=== PATIENT | female | born 1985 ===

== ENCOUNTER 2018-08-19 08:37 | Inpatient (IN) | payer OTHER ==
[2018-08-18 15:09] VITALS: BMI 20.7
[2018-08-19] MEDS ORDERED: Lactated Ringer's 1,000 ML IV ONE ×2 (09:42→11:04)
[2018-08-19 10:08] LABS: BASO % 0.3 % (0.0-2.0); HEMOGLOBIN 13.4 g/dL (12.0-16.0); LYMPH # 1.2 K/uL (1.0-4.3); LYMPH % 21.3 % (20.0-40.0); MEAN CELL VOLUME 89.7 fl (81.0-99.0); MEAN CORPUSCULAR HEMOGLOBIN 29.9 pg (27.0-31.0); MEAN CORPUSCULAR HGB CONC 33.4 g/dL (33.0-37.0); MEAN PLATELET VOLUME 8.1 fl (7.2-11.7); MONO # 0.4 K/uL (0.0-0.8); MONO % 7.6 % (0.0-10.0); NEUT # 3.9 K/uL (1.8-7.0); NEUT % 70.8 % (50.0-75.0); NRBC % 0.1 % (0.0-0.0); RBC 4.49 Mil/uL (3.80-5.20); RED CELL DISTRIBUTION WIDTH 13.5 % (11.5-14.5); WHITE BLOOD COUNT 5.5 K/uL (4.8-10.8)
[2018-08-19] MEDS ORDERED: Silver Nitrate Topical - Stick ONE (10:32)
[2018-08-19] MEDS ORDERED: Bupivacaine 0.5% Inj(30mL) ONE (10:33)
[2018-08-19] MEDS ORDERED: Propofol 10 mg/ml Inj (20 ML) ONE (10:58)
[2018-08-19] MEDS ORDERED: Rocuronium 10 mg/ml (5 ml) ONE ×3 (10:58→15:43)
[2018-08-19] MEDS ORDERED: Succinylcholine Chloride 20 mg/ml Syr (5 ml) IV ONE (10:59)
[2018-08-19] MEDS ORDERED: Lidocaine 4% (Laryng-O-Jet) Kit MM ONE (10:59)
[2018-08-19] MEDS ORDERED: Phenylephrine 10 mg/ml Inj ONE (11:01)
[2018-08-19] MEDS ORDERED: Midazolam 2 MG/2 ML VIAL ONE (11:32)
[2018-08-19] MEDS ORDERED: ePHEDrine 50 mg/ml Inj ONE (11:32)
[2018-08-19] MEDS ORDERED: Bupivacaine 0.5% 50 ML IJ ONE ×2 (12:08)
[2018-08-19] MEDS ORDERED: Desflurane Inhalation Anesthetic Liq (240 ml) ONE (13:31)
[2018-08-19] MEDS ORDERED: Silver Nitrate Topical - Stick TOP ONE (15:30)
[2018-08-19] MEDS ORDERED: Neostigmine 1:1000 (1 mg/ml) Inj ONE (16:26)
[2018-08-19] MEDS ORDERED: Liquid Adhesive TOP ONE ×3 (16:40→16:45)
[2018-08-19] MEDS ORDERED: Sodium Chloride 0.9% 1,000 ML IV SCH (17:00)
[2018-08-19] MEDS ORDERED: Lactated Ringer's 1,000 ML IV SCH (17:15)
[2018-08-19] MEDS: HYDROmorphone 0.5 mg/0.5 ml ISec IVP PRN ×3 (17:30→18:05)
--- NOTE | 2018-08-19 18:29 | RAD ---
HISTORY: pt in pacu, s/p chest tube COMPARISON: None available. TECHNIQUE: Chest, one view. FINDINGS: Left-sided chest tube. LUNGS: No focal consolidation. Please note that chest x-ray has limited sensitivity for the detection of pulmonary masses. PLEURA: No significant pleural effusion identified. No definite pneumothorax . CARDIOVASCULAR: Heart size appears within normal limits. OSSEOUS STRUCTURES: No acute osseous abnormality identified. VISUALIZED UPPER ABDOMEN: Subcutaneous emphysema, left lateral chest wall. OTHER FINDINGS: None. IMPRESSION: Subcutaneous emphysema, left lateral chest wall. Left-sided chest tube.
[2018-08-19] MEDS ORDERED: ceFAZolin 1 GM in Sodium Chloride 0.9% 100 ML IVPB SCH (20:00)
[2018-08-20] MEDS: ceFAZolin 1 GM in Sodium Chloride 0.9% 100 ML IVPB SCH ×2 (00:26→09:09)
[2018-08-20] MEDS: Sodium Chloride 0.9% 1,000 ML IV SCH ×2 (00:28→20:15)
[2018-08-20 05:33] LABS: MEAN CORPUSCULAR HEMOGLOBIN 29.8 pg (27.0-31.0); MEAN CORPUSCULAR HGB CONC 32.7 g/dL (33.0-37.0); RBC 3.34 Mil/uL (3.80-5.20); RED CELL DISTRIBUTION WIDTH 13.5 % (11.5-14.5); WHITE BLOOD COUNT 12.1 K/uL (4.8-10.8)
[2018-08-20 05:44] LABS: BLOOD UREA NITROGEN 15 mg/dl (7-17); CALCIUM 7.5 mg/dL (8.4-10.2); GFR NON-AFRICAN AMERICAN > 60
--- NOTE | 2018-08-20 08:16 | CP.PCM.PN ---
Subjective - Date & Time of Evaluation Date of Evaluation: 08/20/18 Time of Evaluation: 05:35 - Subjective Subjective: Surgery Progress note- Dr. aWrd & Dr. Coelho Patient seen and examined at bedside this AM. Had some pain around the chest tube site and around the lower part of the chest overnight. received 0.5 of dilaudid and Toradol over the course of the night. Saturating 100% on Ra. Left Chest tube to suction, 160cc serosang fluid, no air leak detected. CXR this AM showed no pneumothorax. Remains NPO, MAPs stable between 64-76. Urine output 1110cc since surgery. received 500cc LR bolus overnight. UOP increased to 40- 50cc/hr. A.febrile overnight. remains on Ancef for SCIP protocol, continue DVT ppx, lovenox Objective - Vital Signs/Intake and Output Vital Signs (last 24 hours): Temp Pulse Resp BP Pulse Ox 98.7 F 69 14 97/56 L 100 08/20/18 04:00 08/20/18 07:00 08/20/18 07:00 08/20/18 07:00 08/20/18 07:00 Intake and Output: 08/20/18 08/20/18 06:59 18:59 Intake Total 940 Output Total 960 Balance -20 - Medications Medications: Current Medications Docusate Sodium (Colace) 100 mg PO BID PRN PRN Reason: Constipation Enoxaparin Sodium (Lovenox) 40 mg SC DAILY WILLIAM; Protocol Hydromorphone HCl (Dilaudid) 0.5 mg IVP Q4 PRN PRN Reason: Pain, severe (8-10) Last Admin: 08/20/18 06:01 Dose: 0.5 mg Lactated Ringer's (Lactated Ringer's) 1,000 mls @ 100 mls/hr IV .Q10H [facility] Last Admin: 08/19/18 17:15 Dose: 300 mls Cefazolin Sodium 1 gm/ Sodium (Chloride) 100 mls @ 100 mls/hr IVPB Q8H [facility]IAM; Protocol Stop: 08/20/18 08:59 Last Admin: 08/20/18 00:26 Dose: 100 mls/hr Sodium Chloride (Sodium Chloride 0.9%) 1,000 mls @ 100 mls/hr IV .Q10H [facility] Last Admin: 08/20/18 00:28 Dose: 100 mls/hr Ketorolac Tromethamine (Toradol) 30 mg IVP ONCE PRN PRN Reason: Pain, moderate (4-7) Ondansetron HCl (Zofran Inj) 4 mg IVP Q4 PRN PRN Reason: Nausea/Vomiting Last Admin: 08/19/18 17:30 Dose: 4 mg - Labs Labs: 08/20/18 04:40 08/20/18 04:40 - Constitutional Appears: Non-toxic, No Acute Distress - Head Exam Head Exam: ATRAUMATIC - Eye Exam Eye Exam: EOMI - ENT Exam ENT Exam: Mucous Membranes Moist - Respiratory Exam Respiratory Exam: Clear to Ausculation Bilateral, NORMAL BREATHING PATTERN. absent: Accessory Muscle Use, Rales, Rhonchi, Wheezes, Respiratory Distress Additional comments: Left chest tube in place, 160cc serosang fluid, no air leak detected. - Cardiovascular Exam Cardiovascular Exam: REGULAR RHYTHM, +S1, +S2. absent: Bradycardia, Tachycardia - GI/Abdominal Exam GI & Abdominal Exam: Soft, Tenderness (mildly tender around incisions. ABD soft) - Exam Additional comments: Khan in place, making adequate urine - Neurological Exam Neurological Exam: Alert, Awake, Oriented x3 - Skin Skin Exam: Intact, Normal Color Assessment and Plan - Assessment and Plan (Free Text) Assessment: 32F s/p robotic endometriosis surgery, Diaphragm resection, L. Chest tube thorocostomy placement POD#1 Plan: - Pain control PRN; change to RTC Toradol - monitor drain output if decreases plan for chest x-ray and possible Chest tube to water seal - monitor CT output - Maintain MAP > 65 - Advance diet to clears - plan to D/C khan this AM - monitor H/H; repeat labs tomorrow AM - Abx per SCIP - DVT ppx - further recs per Dr. Ward and Dr. Coelho [facility]ings [facility] PGY2
[2018-08-20] MEDS: Enoxaparin 40 mg Syringe SC SCH (10:00)
--- NOTE | 2018-08-20 12:03 | RAD ---
Date of service: 08/20/2018 PROCEDURE: CHEST RADIOGRAPH, 1 VIEW HISTORY: f/u chest tube COMPARISON: 08/19/2018 FINDINGS: LUNGS: Clear. PLEURA: No pneumothorax or pleural fluid seen. CARDIOVASCULAR: No aortic atherosclerotic calcification present. Normal. OSSEOUS STRUCTURES: No significant abnormalities. VISUALIZED UPPER ABDOMEN: Normal. OTHER FINDINGS: None. IMPRESSION: No active disease.
[2018-08-20] MEDS ORDERED: Lactated Ringer's 1,000 ML IV SCH (13:30)
[2018-08-20] MEDS ORDERED: Sodium Chloride 0.9% 1,000 ML IV SCH (14:15)
--- NOTE | 2018-08-20 14:15 | RAD ---
Date of service: 08/20/2018 PROCEDURE: CHEST RADIOGRAPH, 1 VIEW HISTORY: Chest Tube Placement COMPARISON: 08/20/2018 at 12:22 a.m. FINDINGS: LUNGS: There opacity at lateral left lung base which may reflect developing pneumonia. Follow-up is advised. No other abnormal opacity elsewhere. PLEURA: Possible small left pleural effusion. No right pleural effusion. Left chest tube noted. No pneumothorax. CARDIOVASCULAR: No aortic atherosclerotic calcification present. Normal. OSSEOUS STRUCTURES: No significant abnormalities. VISUALIZED UPPER ABDOMEN: Normal. OTHER FINDINGS: None. IMPRESSION: Left chest tube. Possible very small left pleural effusion. No pneumothorax. Opacity at lateral left lung base common nonspecific. Follow-up advised.
--- NOTE | 2018-08-20 15:10 | RAD ---
Date of service: 08/20/2018 PROCEDURE: CHEST RADIOGRAPH, 1 VIEW HISTORY: re-evaluate pneumothorax on water seal COMPARISON: 08/20/2018 FINDINGS: LUNGS: Clear. PLEURA: No pneumothorax or pleural fluid seen. CARDIOVASCULAR: No aortic atherosclerotic calcification present. Normal. OSSEOUS STRUCTURES: No significant abnormalities. VISUALIZED UPPER ABDOMEN: Normal. OTHER FINDINGS: None. IMPRESSION: No active disease.
--- NOTE | 2018-08-20 19:19 | RAD ---
Date of service: 08/20/2018 PROCEDURE: CHEST RADIOGRAPH, 1 VIEW HISTORY: re-evaluate s/p D/C L chest tube COMPARISON: 08/20/2018 at 2:22 p.m. FINDINGS: LUNGS: Clear. PLEURA: No pneumothorax or pleural fluid seen. CARDIOVASCULAR: No aortic atherosclerotic calcification present. Normal. OSSEOUS STRUCTURES: No significant abnormalities. VISUALIZED UPPER ABDOMEN: Normal. OTHER FINDINGS: None. IMPRESSION: No active disease.
[2018-08-20] MEDS ORDERED: Sodium Chloride 0.9% 500 ML IV ONE (22:05)
[2018-08-21 05:31] LABS: HEMOGLOBIN 8.2 g/dL (12.0-16.0); MEAN CELL VOLUME 90.8 fl (81.0-99.0); MEAN CORPUSCULAR HEMOGLOBIN 30.7 pg (27.0-31.0); MEAN CORPUSCULAR HGB CONC 33.8 g/dL (33.0-37.0); RBC 2.66 Mil/uL (3.80-5.20); RED CELL DISTRIBUTION WIDTH 13.5 % (11.5-14.5); WHITE BLOOD COUNT 6.3 K/uL (4.8-10.8)
[2018-08-21 05:51] LABS: BLOOD UREA NITROGEN 8 mg/dl (7-17); CALCIUM 7.6 mg/dL (8.4-10.2); GFR NON-AFRICAN AMERICAN > 60
--- NOTE | 2018-08-21 07:54 | CP.PCM.PN ---
Subjective - Date & Time of Evaluation Date of Evaluation: 08/21/18 Time of Evaluation: 06:30 - Subjective Subjective: Surgery Progress note- Dr. Ward Patient seen and examined at bedside. Chest tube was removed yesterday. No pneumothorax noted. Patient using Incentive spirometer pulling approx 800. Pain adequately controlled at this time w/ Toradol. + flatus, No BM. Gallagher removed yesterday AM, voiding freely. drop in Hgb,, patient states currently menstruating. +OOB and ambulating. DVT ppx. Denies fevers, chills, chest pain, shortness of breath. Objective - Vital Signs/Intake and Output Vital Signs (last 24 hours): Temp Pulse Resp BP Pulse Ox 98.8 F 85 23 99/69 L 99 08/21/18 04:00 08/21/18 06:00 08/21/18 06:00 08/21/18 06:00 08/21/18 06:00 Intake and Output: 08/21/18 08/21/18 06:59 18:59 Intake Total 700 Balance 700 - Medications Medications: Current Medications Docusate Sodium (Colace) 100 mg PO BID PRN PRN Reason: Constipation Enoxaparin Sodium (Lovenox) 40 mg SC DAILY WILLIAM; Protocol Last Admin: 08/20/18 10:00 Dose: 40 mg Lactated Ringer's (Lactated Ringer's) 1,000 mls @ 100 mls/hr IV .Q10H [facility] Last Admin: 08/19/18 17:15 Dose: 300 mls Sodium Chloride (Sodium Chloride 0.9%) 1,000 mls @ 100 mls/hr IV .Q10H [facility] Last Admin: 08/20/18 20:15 Dose: 100 mls/hr Ketorolac Tromethamine (Toradol) 30 mg IVP Q6H [facility] Last Admin: 08/21/18 07:02 Dose: Not Given Ondansetron HCl (Zofran Inj) 4 mg IVP Q4 PRN PRN Reason: Nausea/Vomiting Last Admin: 08/19/18 17:30 Dose: 4 mg - Labs Labs: 08/21/18 04:45 08/21/18 04:45 - Constitutional Appears: Non-toxic, No Acute Distress - Head Exam Head Exam: ATRAUMATIC - Eye Exam Eye Exam: EOMI. absent: Scleral icterus - ENT Exam ENT Exam: Mucous Membranes Moist - Respiratory Exam Respiratory Exam: NORMAL BREATHING PATTERN. absent: Accessory Muscle Use, Respiratory Distress - Cardiovascular Exam Cardiovascular Exam: Tachycardia, REGULAR RHYTHM. absent: Bradycardia - GI/Abdominal Exam GI & Abdominal Exam: Soft. absent: Distended, Firm, Guarding, Rigid, Tenderness - Neurological Exam Neurological Exam: Alert, Awake, Oriented x3 - Psychiatric Exam Psychiatric exam: Normal Affect - Skin Skin Exam: Intact, Warm Assessment and Plan - Assessment and Plan (Free Text) Assessment: 32F s/p robotic endometriosis, diaphragm resection s/p Chest tube thoracostomy POD#2; now chest tube removed Plan: - Pain control PRN - encourage Incentive [place] use - OOB and ambulating - advance diet as tolerated - anti-emetic PRN - c/w DVT ppx - keep IVF - continue to monitor vitals - cleared to transfer out of ICU - further recs per Dr. Ward Surgical attending PGY2
[2018-08-21] MEDS: Enoxaparin 40 mg Syringe SC SCH (09:18)
--- NOTE | 2018-08-21 10:58 | RAD ---
Date of service: 08/20/2018 PROCEDURE: CHEST RADIOGRAPH, 1 VIEW HISTORY: re-eval for left pneumothorax s/p DC chest tube COMPARISON: 08/20/2018 at 4:36 p.m. FINDINGS: LUNGS: No infiltrate. PLEURA: No pleural effusion. Trace air seen beneath the heart which may reflect small pneumothorax or pneumomediastinum. In retrospect this may have been present on prior examination of the same date. No generalized pneumomediastinum. No pneumothorax appreciated elsewhere. CARDIOVASCULAR: No aortic atherosclerotic calcification present. Normal. OSSEOUS STRUCTURES: No significant abnormalities. VISUALIZED UPPER ABDOMEN: Normal. OTHER FINDINGS: None. IMPRESSION: Possible trace pneumomediastinum or pneumo thorax with sub cardiac trace curvilinear air. Follow-up advised.
--- NOTE | 2018-08-21 11:32 | PCM.OP ---
Operative Report - Operative Report Date of Surgery/Procedure: 08/19/18 Time of Surgery/Procedure: 10:00 Surgeon: Dr. Emile Ward Advanced Seal Delivery System: Dr. Dorian Coelho Anesthesia/Sedation: general/Dr. Yanez Pre-Operative Diagnosis: Abdominal pain, upper abdominal pain, chest pain and pelvic pain from endometriosis Post-Operative Diagnosis: same Indication for Surgery: As above Operative Findings: Severe involvement of endometriosis including pelvis rectum and sigmoid colon and left diaphragm Procedure/Operation Description: Brief history: This is a 32-year-old woman who had been previously operated on for abdominal pain from endometriosis. On a previous surgery it was noted that she had extensive pain. During the laparoscopic exploration Dr. [place] he noted extensive involvement of endometriosis to the intestines and the left diaphragm. A drop of consultation was obtained. Description of the procedure: 1-diaphragm resection and complex repair 2-excision pericardial endometriosis x2 3-excision of multiple perirectal endometriosis x3 4-colrorrhaphy x2 5-left chest tube thoracostomy Description of the procedure: The patient had already been brought to the operative DrReg Coelho (separate dictation). The initial portion of the operation include the pelvic procedure. As noted above there were multiple lesions in the rectum and sigmoid colon. The first lesions in the sigmoid colon was excised using electrocautery circumferentially. The first lesion was on the more proximal portion of the sigmoid colon it was lifted using blunt and sharp dissection. Once this was completed the specimen was appropriately marked and sent to pathology. This portion of the colon was then oversewn with multiple interrupted 3-0 Vicryl sutures. Attention was then turned to the more distal portion of the sigmoid where a larger deeper lesion was excised in a similar man ner. This was also probably marked pathology separately. Another lesion was excised in a similar manner. The sigmoid colon was then closed using interrupted 3-0 Vicryl suture. 2 other perirectal lesions were exposed, excised in a similar manner. All the specimens were sent separately to pathology. The operation was then turned over to Dr. Coelho (separate dictation). The robot was removed and oriented for the left upper quadrant lesion involving the diaphragm. Once the robot was set up the area in question was examined and there were approximately 2 areas of pericardial endometriosis and involving the left the pericardium were excised. Using blunt and sharp dissection with the aid of electrocautery. The lesion on the pericardial side was excised, appropriate marked and sent to pathology separately. The other 3 lesions in the left diaphragm were excised in a similar fashion, however, the thorax was violated and this was noted during the procedure. These lesions were excised separately and sent to pathology after being appropriately marked. The left chest tube thoracostomy was placed in between the ninth and 10th ribs at approximately mid axillary line. Using a 10 blade the skin was incised and the 28 Yi tube was placed into the thorax. This is secured to the skin using multiple 2-0 silk sutures. The tube was connected to a Pneumovac and we continued with the robotic procedure. With the Pneumovax in place and using 30V lock the diaphragm was repaired using multiple 30V lock sutures in a continuous fashion. It must be noted at this time that during the closure of the diaphragm there was no leak at all evident with the Pneumovac. Hemostasis was deemed adequate and all counts were correct. The operation was then turned over to Dr. Coelho (separate dictation). Estimated Blood Loss: 200 cc Drains: 28F thoracostomy tube Complications: none Discharge & Condition: stable
--- NOTE | 2018-08-21 13:04 | RAD ---
Date of service: 08/21/2018 PROCEDURE: CHEST RADIOGRAPH, 1 VIEW HISTORY: re-evaluate for pneumothorax COMPARISON: 08/20/2018 FINDINGS: LUNGS: Clear. PLEURA: No pneumothorax or pleural fluid seen. CARDIOVASCULAR: No aortic atherosclerotic calcification present. Normal. OSSEOUS STRUCTURES: No significant abnormalities. VISUALIZED UPPER ABDOMEN: Normal. OTHER FINDINGS: None. IMPRESSION: No active disease.
[2018-08-21] MEDS: Sodium Chloride 0.9% 1,000 ML IV SCH (17:00)
[2018-08-22 04:55] VITALS: RESP 20
[2018-08-22 06:33] LABS: HEMOGLOBIN 8.3 g/dL (12.0-16.0); MEAN CELL VOLUME 90.8 fl (81.0-99.0); MEAN CORPUSCULAR HEMOGLOBIN 29.7 pg (27.0-31.0); MEAN CORPUSCULAR HGB CONC 32.7 g/dL (33.0-37.0); RBC 2.78 Mil/uL (3.80-5.20); RED CELL DISTRIBUTION WIDTH 13.6 % (11.5-14.5); WHITE BLOOD COUNT 4.7 K/uL (4.8-10.8)
[2018-08-22 08:57] VITALS: BP 109/74; O2SAT 100
--- NOTE | 2018-08-22 09:05 | CP.PCM.DIS ---
Provider - Provider Date of Admission: 08/19/18 16:53 Attending physician: Dorian Coelho Time Spent in preparation of Discharge (in minutes): 35 Diagnosis - Discharge Diagnosis (1) S/P endometrial ablation Status: Acute Priority: High (2) Endometriosis determined by laparoscopy Status: Chronic Priority: High (3) S/P chest tube placement Status: Acute Priority: High (4) Pain, postoperative, acute Status: Acute Priority: Medium Hospital Course - Lab Results Lab Results: Micro Results 08/19/18 23:15 Naris MRSA Culture (Admit) - Final MRSA NOT DETECTED Most Recent Lab Values WBC 4.7 K/uL (4.8-10.8) L 08/22/18 05:15 RBC 2.78 Mil/uL (3.80-5.20) L 08/22/18 05:15 Hgb 8.3 g/dL (12.0-16.0) L 08/22/18 05:15 Hct 25.2 % (34.0-47.0) L 08/22/18 05:15 MCV 90.8 fl (81.0-99.0) 08/22/18 05:15 MCH 29.7 pg (27.0-31.0) 08/22/18 05:15 MCHC 32.7 g/dL (33.0-37.0) L 08/22/18 05:15 RDW 13.6 % (11.5-14.5) 08/22/18 05:15 Plt Count 171 K/uL (130-400) 08/22/18 05:15 MPV 8.1 fl (7.2-11.7) 08/19/18 09:50 Neut % (Auto) 70.8 % (50.0-75.0) 08/19/18 09:50 Lymph % (Auto) 21.3 % (20.0-40.0) 08/19/18 09:50 Cherry % (Auto) 7.6 % (0.0-10.0) 08/19/18 09:50 Eos % (Auto) 0.0 % (0.0-4.0) 08/19/18 09:50 Baso % (Auto) 0.3 % (0.0-2.0) 08/19/18 09:50 Neut # (Auto) 3.9 K/uL (1.8-7.0) 08/19/18 09:50 Lymph # (Auto) 1.2 K/uL (1.0-4.3) 08/19/18 09:50 Cherry # (Auto) 0.4 K/uL (0.0-0.8) 08/19/18 09:50 Eos # (Auto) 0.0 K/uL (0.0-0.7) 08/19/18 09:50 Baso # (Auto) 0.0 K/uL (0.0-0.2) 08/19/18 09:50 Sodium 138 mmol/l (132-148) 08/21/18 04:45 Potassium 3.7 MMOL/L (3.6-5.0) 08/21/18 04:45 Chloride 105 mmol/L (98-107) 08/21/18 04:45 Carbon Dioxide 26 mmol/L (22-30) 08/21/18 04:45 Anion Gap 11 (10-20) 08/21/18 04:45 BUN 8 mg/dl (7-17) 08/21/18 04:45 Creatinine 0.5 mg/dl (0.7-1.2) L 08/21/18 04:45 Est GFR ( Amer) > 60 08/21/18 04:45 Est GFR (Non-Af Amer) > 60 08/21/18 04:45 Random Glucose 85 mg/dL (65-105) 08/21/18 04:45 Calcium 7.6 mg/dL (8.4-10.2) L 08/21/18 04:45 Phosphorus 4.3 mg/dl (2.5-4.5) 08/20/18 04:40 Magnesium 2.0 MG/DL (1.6-2.3) 08/20/18 04:40 Blood Type O POSITIVE 08/19/18 09:50 Blood Type Confirm O POSITIVE 08/19/18 11:03 Antibody Screen Negative 08/19/18 09:50 BBK History Checked No verified bt 08/19/18 09:50 - Hospital Course Hospital Course: 32F with PMH of abdominal pain, upper abdominal pain, chest pain and pelvic pain from endometriosis presented through sameday surgery for robotic assisted laparoscopic ablation of endometriosis by Dr. Coelho and Dr. Ward. During the operation, endometriosis was found to be extensive and lesions were found on the left diaphragm. Resection of the lesions was performed and Chest tube was placed on the left pleural cavity. Patient tolerated the procedure well and on post operative day 1 chest tube was removed with no complications. By post-operative day 3 patient was tolerating regular diet and passing flatus, ambulating, with no respiratory distress and pain controlled on PO pain medication. Patient was discharged to home with PO pain medicine with instructions to follow up with Dr. Coelho in his office. For full hospital course, refer to chart Discharge Exam - Head Exam Head Exam: ATRAUMATIC - Eye Exam Eye Exam: Normal appearance. absent: Conjunctival injection, Scleral icterus - ENT Exam ENT Exam: Mucous Membranes Moist, Normal Oropharynx - Respiratory Exam Respiratory Exam: NORMAL BREATHING PATTERN, UNREMARKABLE. absent: Accessory Muscle Use, Rales, Rhonchi, Wheezes Additional comments: left chest tube site with dressing intact, moderate serosanguinous saturation unchanged from prior exams - Cardiovascular Exam Cardiovascular Exam: RRR - GI/Abdominal Exam GI & Abdominal Exam: Soft, Tenderness (BL lower quadrants mild tenderness to palpation). absent: Distended Additional comments: surgical dressings inplace with no saturation, no surrounding erythema or swelling - Extremities Exam Extremities exam: normal inspection, pedal pulses present - Neurological Exam Neurological exam: Alert, Oriented x3 - Psychiatric Exam Psychiatric exam: Normal Affect, Normal Mood - Skin Skin Exam: Dry, Normal Color, Warm Discharge Plan - Follow Up Plan Condition: GOOD Disposition: HOME/ ROUTINE Additional Instructions: Call Dr. Coelho's office to schedule a follow up appointment in 1-2 weeks No heavy lifting >15 pounds for 4 weeks or until instructed by Dr. Coelho You may take off the bandaids tomorrow. Do not peel the skin glue off--it will fall of on its own Change chest dressing as needed for any drainage Call Dr. Coelho's office or come to ER for fever >100.4 not resolved with tylenol, severe abdominal or chest pain, nausea, vomiting, shortness of breath, erythema around the surgical sites, or any other concerning symptoms. Referrals: Dorian Coelho [Medical Doctor] - Emile Ward MD [Medical Doctor] -
[2018-08-22] MEDS: Enoxaparin 40 mg Syringe SC SCH (09:58)
[2018-08-22 12:48] VITALS: PULSE 93; TEMP 99.3
--- NOTE | 2018-08-25 15:55 | OP ---
PROCEDURE DATE: 08/19/2018 SURGEON: Dorian Coelho MD HISTORIOGRAPHY PROFESSOR: Emile Ward MD ANESTHESIOLOGIST: Allie Yanez MD, MD, Joseph TYPE OF ANESTHESIA: General endotracheal. PREOPERATIVE DIAGNOSES: 1. Incapacitating pelvic pain. 2. Incapacitating abdominal pain. 3. Abnormal uterine bleeding. 4. History of pelvic endometriosis. 5. History of previously failed medical and surgical therapy. 6. Gastrointestinal and genitourinary symptoms. 7. Rule out interstitial cystitis. 8. History of severe endometriosis and pelvic adhesions POSTOPERATIVE DIAGNOSES: 1. Incapacitating pelvic pain. 2. Incapacitating abdominal pain. 3. Abnormal uterine bleeding. 4. History of pelvic endometriosis. 5. History of previously failed medical and surgical therapy. 6. History of severe endometriosis and pelvic adhesions. 7. Gastrointestinal and genitourinary symptoms. 8. left ovarian endometrioma 9. Mild ureteral distention. 10: left hydrosalpinx PROCEDURES PERFORMED: 1. Exam under anesthesia. 2. Video assisted hysteroscopy. 3. Cystoscopy. 4. Bilateral ureteral catheterization and injection of IC-Green dye. 5. Robotic da Paul operative laparoscopy. 6. Treatment of endometriosis. 7. Excision of endometriosis. 8. Bilateral ureterolysis. 9. Bilateral ovariolysis. 10: Left ovarian cystectomy 11) Left salpingectromy Dr. Ward : excision of intestinal and diaphrammatic endometriosis COMPLICATIONS: None. SAMPLES SENT: 1. Left Uterosacral l endometriosis. 2. Left periureteral endometriosis. 3. Right periureteral endometriosis. 4. Right uterosacral endometriosis. 5. Left and right ovarian fossa endometriosis. 6. Iliac endometriosis. 7. Posterior cervical endometriosis. 8. Rectal endometriosis, anterior. 9) Cul de sac endometriosis INDICATION FOR THE PROCEDURE AND CONSENT: The patient had a long history of pelvic pain, dysmenorrhea, dyspareunia, abdominal pain, and bladder pain. The patient had been thoroughly evaluated and counseled regarding the pros and cons of the procedure, the reasonable alternatives, and possible complications. She understood and accepted the risks involved. Literature was provided to the patient. The patient was understanding and given her history and per surgical exam, she was at high risk in an average patient. She accepted all the risks involved, and all the questions had been answered to her satisfaction. FINDINGS OF SURGERY: Genitalia: Normal external genitalia, cervix without lesion and polyps. Hysteroscopy: Hysteroscopy shows a clear uterine cavity with no polyps or masses noticed. Cystoscopy: The cystoscopy was performed to rule out endometriosis and also any interstitial cystitis and also injury. The bladder was normal with no evidence of stone, trigonitis, or cystitis. A positive jet flow was identified in both ureters. Laparoscopy: The upper abdomen appeared to be normal. Gallbladder was normal. Liver edges appeared to be normal. Ascending colon and transverse were normal. There was evidence of adhesions, fibrosis, and endometriosis of the rectovaginal and pelvic sidewalls. The appendix appeared to be surfically absent . There was a loop of bowel severely adherent to the top of the uterus , the cul de sac was completely obliterated. The left tube was transformed in a hydrosalpinx . There was also evidence of mild hydroureters. DESCRIPTION OF THE PROCEDURE: Initiation of the case: After adequate anesthesia was obtained, the patient was placed in the dorsal lithotomy position, and with extreme care, placement of the patient with hyperextension and hyperflexing of the hips. At this point, the patient was prepped and draped. The surgeon was gowned and gloved. A timeout was taken according to the hospital procedure and the procedure was started. At this point, we performed cystoscopy, bilateral ureteral catheterization. A cystoscope was inserted into the bladder under direct visualization and the bladder was visualized. The bladder was free of lesions and tumors. There was no evidence of interstitial cystitis, and there was only mild amount of trigonitis. At this point, both ureters were identified and appeared to be in their normal anatomical position. At this point, utilizing an open 5-Czech open-ended catheter, the left ureter was catheterized all the way to the distal ureter, and 5 mL of IC-Green was injected into this ureter. Similarly, the contralateral ureter was catheterized all the way to the distal ureter, and 5 mL of IC-Green was injected into the distal ureter. At this point, the stents were removed, and the cystoscope was removed, and the 16-Czech Gallagher was inserted into the bladder. At this point, we proceeded with a hysteroscopy. A speculum was placed into vagina, and the anterior lip of the cervix was grasped. The cervix was dilated, and a hysteroscope was inserted into the cavity. The cavity appeared to be of normal size with no evidence of polyps, cysts, adenomyosis, or fibroids. At this point, we proceeded with placement of a trocar and docking of the da Paul Xi robot. The surgeon was re-gowned and gloved, and open laparoscopy was performed by making incision in the umbilicus and the fascia was incised. The peritoneum was entered in a blunt fashion, and the cannula was inserted under direct visualization. The abdomen was insufflated, and under direct visualization, three additional ports were inserted in the left upper quadrant, left mid quadrant, and right upper quadrant. At this point, the da Paul Xi robot was brought into the field and docked, and the instruments were inserted under direct visualization. All this with extreme care not to injure the bowel or another area. As per dictation, the upper abdomen appeared to be normal with no evidence of any lesions. At this point, we proceeded with a left ureterolysis. The ureter appeared to be dilated and was clearly identified utilizing IC-Green fluorescent technology. Anesthesia was made in the peritoneum at the top of the pelvic brim, and the incision was then carried down all the way opening the peritoneum all the way down from the pelvic brim, all the way down to the ovarian fossa, extending the incision below the ovary. It was a progressive dissection where the ureter was progressively lateralized and peritoneum was medialized, thus freeing the ureter all the way down to the cross of the uterine vessels. After this was done, the ureter was freed and lateralized, and a larger peritoneum which had been opened, was excised, and sent to pathology. At this point, with the aid of very slow process, I was able to elevate the ovary and proceed with ovariolysis. At this point, we proceeded with a left ovariolysis. The left ovary was adherent to the posterior aspect of the uterus. It was gently dissected in a step by step way. It was peeled off, the ovarian fossa, andan area of extensive fibrosis and endometriosis was exposed. there was a massive endometrima planted deeply in the left pararectal space . At this point, we proceeded with a left ovarian cystectomy After identifying the ureter we proceeded with elevating the ovary , the endometioma was drained and the endometriosis cyst wall was progressively dissected off the ovary and sent to pathology . At this point, we proceeded with a left salpingectomy the left falloprian tube was vry distended and convoluted with firm adhesions it was decided to remove it as it was non fuctional and involved with endometriosis. At this point, we proceeded with a right ureterolysis. The ureter was identified again utilizing fluorescent technology on the right hand side and retroperitoneal space was entered, and a full dissection was performed,entering the retroperitoneal space and dissecting the ureter, removing the ureter laterally and the peritoneum medially. A full dissection was performed all the way down to the ovarian fossa and the crossing of the uterine arteries. An area of peritoneum containing endometriosis was dissected and sent to Pathology. At this point, we proceeded with a right ovariolysis. The right ovary was adherent to the peritoneum. It was gently elevated progressively, and dissected off from the peritoneal area. All this done with extreme care to preserve vascularization to the ovary. At this point, we proceeded with treatment of endometriosis and excision of endometriosis. On the left hand side, fibrosis, especially in the left ovarian fossa was excised. In a very progressive step by step fashion, we dissected off fibrosis containing endometriosis and freed up the whole area. The ureters which had been lateralized. Areas of fibrosis and endometriosis were also identified in the posterior cul-de-sac and in the rectovaginal space which was also affected with endometriosis and fibrosis. At this point, we proceeded with the excision of perirectal endometriosis. The rectovaginal area had significant fibrosis and additional endometriosis was dissected from the posterior aspect of the uterus, and the rectovaginal space was entered at the level of the peritoneal reflection. All this done making sure that no damage to the rectum was performed. At this point, endometriosis was also excised from the right uterosacral area which also was affected by fibrosis and endometriosis. At this point we handed the console to Dr. Ward for the continuation of the procedure. We checked for hemostasis and organ integrity and all was normal. At this point, the da Paul Xi robot was removed. The abdomen was desufflated, and the incisions were closed in layers with 0 PDS for the fascia and 4-0 Monocryl for the skin. At the end of the procedure, all tips and instrument counts were correct. The patient tolerated the procedure well and was taken to the recovery room in excellent condition. Meliton SWARTZ, Dorian CONKLIN
== END 2018-08-22 17:10 | disposition home or self-care (01) | DRG 331 ==
LOC: H.OPSURG 08:37 → H.ICU/CCU 16:53 → H.PEDS 08-21 16:31
PROVIDERS: ADMIT Obstetrics & Gynecology Reproductive Endocrinology; ATTEND Obstetrics & Gynecology Reproductive Endocrinology
PROC: 0UN24ZZ Release Bilateral Ovaries, Percutaneous Endoscopic Approach (ICD-10-PCS; 2018-08-19)
PROC: 0TN74ZZ Release Left Ureter, Percutaneous Endoscopic Approach (ICD-10-PCS; 2018-08-19)
PROC: 0TN64ZZ Release Right Ureter, Percutaneous Endoscopic Approach (ICD-10-PCS; 2018-08-19)
PROC: 0DBW4ZZ Excision of Peritoneum, Percutaneous Endoscopic Approach (ICD-10-PCS; 2018-08-19)
PROC: 0BBT4ZZ Excision of Diaphragm, Percutaneous Endoscopic Approach (ICD-10-PCS; 2018-08-19)
PROC: 8E0W0CZ Robotic Assisted Procedure of Trunk Region, Open Approach (ICD-10-PCS; 2018-08-19)
PROC: 0DQN4ZZ Repair Sigmoid Colon, Percutaneous Endoscopic Approach (ICD-10-PCS; principal; 2018-08-19 11:00)
PROC: 0DBP4ZZ Excision of Rectum, Percutaneous Endoscopic Approach (ICD-10-PCS; 2018-08-19 11:00)
PROC: 0W9B40Z Drainage of Left Pleural Cavity with Drainage Device, Percutaneous Endoscopic Approach (ICD-10-PCS; 2018-08-19 11:00)
PROC: 0UB14ZZ Excision of Left Ovary, Percutaneous Endoscopic Approach (ICD-10-PCS; 2018-08-19 11:00)
PROC: 0UT64ZZ Resection of Left Fallopian Tube, Percutaneous Endoscopic Approach (ICD-10-PCS; 2018-08-19 11:00)
DX: N80.5 Endometriosis of intestine (principal); N80.0 Endometriosis of uterus; N80.3 Endometriosis of pelvic peritoneum; N80.1 Endometriosis of ovary; N80.2 Endometriosis of fallopian tube; N80.8 Other endometriosis; N70.11 Chronic salpingitis; N28.82 Megaloureter; N93.8 Other specified abnormal uterine and vaginal bleeding; R07.89 Other chest pain; N73.6 Female pelvic peritoneal adhesions (postinfective); N93.9 Abnormal uterine and vaginal bleeding, unspecified